=== PATIENT | male | born 1950 | race Caucasian/White ===

== ENCOUNTER 2020-08-16 19:39 | Emergency (ER) | payer MEDICARE, SELFPAY ==
[2020-08-16 19:40] VITALS: BP 150/108; PULSE 118; RESP 28; TEMP 36.9; O2SAT 95; BMI 30.8
--- NOTE | 2020-08-16 19:51 | CT_ITS ---
STUDY: CT BRAIN WITHOUT CONTRAST REASON FOR EXAM: Male, 70 years old. Fall trauma RADIATION DOSAGE (If Supplied By Facility): CTDIvol = ( 44.99 ) mGy, DLP = ( 880.47 ) mGycm TECHNIQUE: Transaxial CT imaging of the brain was performed without administration of intravenous contrast material. Individualized dose optimization techniques were used for this CT. COMPARISON: No relevant priors. FINDINGS: There is chronic ischemic change in the right frontal deep white matter. There is no acute intracranial hemorrhage, extra parenchymal fluid collections, hydrocephalus or herniation. The skull is intact. There is possible nasal fracture with nasal deformity. This is age indeterminate. CT/Brain/Head without Contrast IMPRESSION: 1. No acute intracranial injury. 2. Nasal deformity, unknown age, evaluate for possibility of acute fracture. Electronically Signed: Guadalupe Aviles, at 20:19 EDT Tel , Service support ,
--- NOTE | 2020-08-16 19:51 | EKG12_ITS ---
Test Reason : DYSRYHMIA Blood Pressure : / mmHG Vent. Rate : 107 BPM Atrial Rate : 107 BPM P-R Int : 144 ms QRS Dur : 104 ms QT Int : 382 ms P-R-T Axes : 054 -49 021 degrees QTc Int : 509 ms Sinus tachycardia with Premature atrial complexes Left anterior fascicular block Cannot rule out Inferior infarct (masked by fascicular block?) , age undetermined Abnormal ECG Confirmed by AMISHA QUINTANA, HANK ([id number]), editor managing newspaper SUNSHINE LEAHY ([id number]) on 08/18/2020 10:30:00 AM Referred By: FREEDOM Confirmed By:HANK LION MD
--- NOTE | 2020-08-16 19:52 | ED.VIS.GEN ---
History of Present Illness Chief Complaint: General Illness Informant: Patient, Significant Other, Career Manager Narrative: Presents by EMS. He has had multiple falls over the past few weeks, yesterday he fell hurt the right side of his ribs as well as his right elbow, he has been laying on the floor since yesterday. He has been unable to get up. He has no head injury, denies confusion denies neck pain. He has a tremor and he has been more weak recently and now is starting to shuffle his feet when he walks. Past Medical History - Allergies and Home Meds Allergies/Adverse Reactions: Allergies No Known Allergies Allergy (Verified 08/16/20 19:40) Primary Care Physician: Ashwin Hatfield MD [Primary Care Provider] - Past Medical History: - - Hypertension, hypercholesterolemia, diabetes, tremor Smoking Status: Never smoker Review of Systems ROS: - Hypertension, hypercholesterolemia, diabetes, tremor. General: Reports: - - Generalized weakness. Denies: Fever Eyes: Denies: Visual changes - bilaterally ENT: Denies: Sore throat Cardiovascular: Reports: Chest pain, - - Chest wall pain. Denies: Palpitations Respiratory: Denies: Dyspnea Gastrointestinal: Denies: Abdominal pain, Nausea, Vomiting Genitourinary: Denies: Dysuria Musculoskeletal: Reports: Extremity Pain Skin: Denies: Rash Neurological: Denies: Headache Endocrine: Denies: Polyuria Hematologic: Denies: Easy bruising Allergy: Denies: Swelling of the tongue Physical Exam Vital Signs/Narrative: Vital Signs Temp Pulse Resp BP Pulse Ox 08/16/20 19:40 98.5 F 118 H 28 H 150/108 H 95 General: - - Patient appears relatively comfortable in bed, he is smiling, he is tachycardic Head: Normocephalic Eyes: Perrl, EOMI ENT: Dry mucous membranes, - - No airway compromise. No facial injury Cardiovascular: Regular rhythm, Tachycardia Respiratory: No distress, CTA bilaterally, - - Right-sided lower rib tenderness Abdomen: Soft, Nontender, Nondistended Back: Nontender, Normal Inspection Extremities: - - There is a contusion over the right elbow with some tenderness. No obvious deformity Skin: Normal color Neurological: Normal Strength, Normal Sensation Diagnostic/Tx/Re-eval - Rhythm Strip Rhythm Strip: Sinus Rhythm Rate: 107 Ectopy: None - EKG Initial EKG Interpretation: - - Tachycardia with a rate of 107. Left anterior fascicular block. Nonspecific ST changes throughout. Normal SD interval. QTc interval is slightly prolonged at 509. Interpreted by emergency doctor - Medical Decision Making Patient is found to have 3 rib fractures he continues to be tachycardic. He is more comfortable as far as pain is concerned. Because of the 3 rib fractures and high morbidity associated with this and per recommendations of trauma surgeons I will transfer to a trauma center. - Critical Care Time Critical care time (excluding procedures): 30-74 minutes - Patient is tachypneic and tachycardic he has multiple rib fractures. Time was spent at the bedside consulting with family the patient, I took time to transfer the patient as well as talk to consultants. ED Disposition - Plan for ED Patient: Disposition: Acute Care Hospital - Other Diagnosis: Ribs, multiple fractures Referrals: Ashwin Hatfield MD [Primary Care Provider] -
[2020-08-16 20:02] LABS: Absolute Lymphocyte Count 0.68 X10^3/uL (0.83-4.51); Absolute Neutrophil Count 13.8 X10^3/uL (2.0-7.7); Basophil# 0.01 X10^3/uL; Basophil% 0.1 % (0-1); Eosinophil# 0.03 X10^3/uL; Eosinophils% 0.2 % (0-5); Hematocrit 37.9 % (40-54); Hemoglobin 11.9 g/dL (13.0-16.5); Lymphocyte # 0.68 X10^3/ul (4.0); Lymphocyte % 4.3 % (19-41); Mean Corp Hgb Conc 31.4 g/dL (32-36); Mean Corpuscular Hgb 28.3 pg (27.0-32.0); Mean Corpuscular Volume 90.2 fL (80-94); Mean Platelet Vol. 10.9 fl (6.2-12.0); Monocyte# 1.27 X10^3/uL; NRBC Flagged by Analyzer 0 % (0-5); Neutrophil # 13.81 X10^3/uL (2.7-7.7); Neutrophil % 86.9 % (47-70); Platelet Count 348 K/mm3 (150-450); RBC Distribution Width CV 13.3 % (11.6-14.6); RBC Distribution Width SD 43.4 fl (35.1-43.9); White Blood Count 15.9 K/mm3 (4.4-11.0)
--- NOTE | 2020-08-16 20:10 | RAD_ITS ---
STUDY: X-RAY - UNILATERAL RIBS ( RIGHT ) WITH CHEST REASON FOR EXAM: Male, 70 years old. patient had a fall, right rib pain TECHNIQUE - RIBS: 4 view(s) of the ribs. TECHNIQUE - CHEST: COMPARISON: None. FINDINGS - RIBS: There is a minimally displaced fourth right rib fracture laterally. There is a probably minimally displaced fractures of the seventh and eighth ribs anterolaterally. FINDINGS - CHEST: There is no pneumothorax. The lungs are clear and expanded. There is no demonstrated pleural abnormality. Normal size heart. Normal mediastinum and keith. Normal visualized pulmonary arteries. Normal visualized aortic arch and descending thoracic aorta. Normal visualized thoracic spine. Normal visualized ribs, clavicles, and shoulders. There is no demonstrated abnormality of the visualized soft tissue structures of the upper abdomen. There is cholecystectomy. RAD/Ribs Uni Min 3V w/PA Chest IMPRESSION: 1. No pneumothorax. 2. Right rib fractures. 3. Normal lungs. Electronically Signed: Guadalupe Aviles, at 20:30 EDT Tel , Service support ,
[2020-08-16 20:24] LABS: ALB/GLOB Ratio 0.9 RATIO (0.9-2.4); AST(SGOT) 21 U/L (15-37); Alanine Aminotransfer ALT/SGPT 23 U/L (16-61); Albumin, Serum 3.6 g/dL (3.2-5.0); Alkaline Phosphatase 76 U/L (45-117); Anion Gap 10 (5-15); BUN 10 mg/dL (7-18); BUN/Creat Ratio 9.5 RATIO (10-20); Calcium,Total 8.7 mg/dL (8.5-10.1); Chloride 98 mmol/L (98-107); Creatinine, Serum 1.05 mg/dL (0.70-1.30); EST Glomerular Filtration Rate 74 mL/min (>60); Est Glom Filt Rate - Afr Amer 90 mL/min (>60); Estimated Creatinine Clearance 62.08 ml/min; Globulin 4.2 g/dL (2.2-4.2); Glucose 293 mg/dL (74-106); Potassium 3.7 mmol/L (3.5-5.1); Protein, Total 7.8 g/dL (6.4-8.2); Sodium Level 135 mmol/L (136-145)
[2020-08-16 20:25] VITALS: BP 165/106; PULSE 108; RESP 16; O2SAT 96
[2020-08-16 20:27] LABS: CPK Total, Creatine Kinase 339 U/L (39-308)
[2020-08-16 20:49] LABS: BNP,B-Type NATRIURETIC PEPTIDE 28.8 pg/mL (0-100)
[2020-08-16 20:54] LABS: Squamous Epithelial Cells - UA 0 SEEN /hpf (0-5)
[2020-08-16 20:57] LABS: Color, Urine Yellow (Yellow); Glucose, Dipstick 1000 mg/dl (Normal); Leukocyte Esterase-Dipstick 25 /ul (Negative); Nitrite-Dipstick Negative (Negative); Occult Blood-Urine 50 /ul (Negative); Protein-Dipstick 100 mg/dl (Negative); Specific Gravity, Urine 1.025 (1.002-1.030); Urine Clarity Clear (Clear); Urine Urobilinogen 1 mg/dl (Normal)
[2020-08-16 21:00] VITALS: BP 169/88; PULSE 105; RESP 19; O2SAT 95
--- NOTE | 2020-08-16 21:00 | RAD_ITS ---
STUDY: X-RAY - RIGHT ELBOW REASON FOR EXAM: Male, 70 years old fall pain trauma, elbow pain after falling TECHNIQUE: 3 view(s) of the elbow. COMPARISON: None. FINDINGS: The bones of the elbow are intact and located. Mineralization is normal. Soft tissues are intact. There is no joint effusion. RAD/Elbow min 3 Views IMPRESSION: Normal x-ray examination of the elbow. Electronically Signed: Guadalupe Aviles, at 21:18 EDT Tel , Service support ,
[2020-08-16 21:02] LABS: Urine Bilirubin Dipstick 1 mg/dL (Negative)
[2020-08-16 21:05] LABS: Ketone-Dipstick 150 mg/dl (Negative)
[2020-08-16] MEDS: Ondansetron 4 MG/2 ML Vial IV (21:17)
[2020-08-16] MEDS: Morphine 2 MG/ML Syringe IV (21:18)
[2020-08-16 21:25] LABS: Bacteria 1+ /hpf (None Seen); Red Blood Cells-Urine 0-5 SEEN /hpf (0-5); White Blood Cells 0-5 SEEN /hpf (0-5)
[2020-08-16 21:26] LABS: Mucous, Urine 3+ /hpf (<or=2+)
[2020-08-16 21:43] VITALS: BP 169/88; PULSE 103; RESP 20; TEMP 36.9; O2SAT 95
--- NOTE | 2020-08-16 22:17 | ED.RN ---
PT REPORTS HE NEEDS HIS HS MEDS: CLARIFIED WITH DR LOJA AND OBTAINED VERBAL PERMISSION FOR PT TO RCVE HIS HS MEDS. PT RCVD METFORMIN 1000 MG, SIMVASTATIN 40 MG, PRIMIDONE 50 MG AND BABY ASA. EDELMIRA IV INFILTRATED, MODERATE EDEMA NOTED. DR LOJA AWARE AND EXAMINED SITE. NEW IV STARTED IN R HAND
== END 2020-08-16 22:20 | disposition short-term general hospital (02) ==
PROVIDERS: Emergency Provider Emergency Medicine; PCP Family Medicine
DX: S22.41XA Multiple fractures of ribs, right side, initial encounter for closed fracture (principal); S50.01XA Contusion of right elbow, initial encounter; W19.XXXA Unspecified fall, initial encounter; Y93.9 Activity, unspecified; Y92.9 Unspecified place or not applicable; Y99.9 Unspecified external cause status; R29.6 Repeated falls; R06.82 Tachypnea, not elsewhere classified; R00.0 Tachycardia, unspecified; E11.9 Type 2 diabetes mellitus without complications; I10 Essential (primary) hypertension; E78.00 Pure hypercholesterolemia, unspecified; Z79.82 Long term (current) use of aspirin; Z79.84 Long term (current) use of oral hypoglycemic drugs; Z79.899 Other long term (current) drug therapy
CPT/HCPCS: 70450; 71101; 73080; 80053; 81001; 82550; 83880; 84484; 85025; 93005; 96361; 96374; 96375; 99285; J7040; A4216; J2405

== ENCOUNTER → 2021-10-08 06:13 | Outpatient (CLI) | payer MEDICARE, SELFPAY ==
--- NOTE | 2021-10-08 06:44 | MRI_ITS ---
EXAM: MR HEAD WITHOUT AND WITH INTRAVENOUS CONTRAST CLINICAL INDICATION: L OPTIC LESION, H/O PROSTATE CA TECHNIQUE: Multiplanar and multisequence MR images of the brain were obtained without and with intravenous contrast. This report was created using [employer] technology. CONTRAST: IV 15cc Dotarem COMPARISON: None. FINDINGS: BRAIN AND EXTRA-AXIAL SPACES: Subcortical white matter T2 FLAIR hyperintensity focus in the right frontal operculum is chronic white matter ischemic change. No intra- or extra-axial hemorrhage. No intracranial mass or mass effect. Posterior fossa structures are unremarkable. Ventricles are appropriate for age. No hydrocephalus. Basal cisterns are patent. ORBITS: Normal orbital globes. Normal lacrimal glands. Normal intraconal fat. Normal optic nerve sheath complex. Normal extraconal muscles. No abnormal contrast enhancing lesions. SELLA: Unremarkable. Normal sella turcica, pituitary gland, infundibular stalk, optic chiasm and hypothalamus. AUDITORY SYSTEM: Unremarkable. The internal auditory canals are patent. BONES/JOINTS: Unremarkable. No discrete lytic or blastic abnormalities. SINUSES: Unremarkable as visualized. Clear. MASTOID AIR CELLS: Unremarkable as visualized. Clear. ORBITS: Unremarkable as visualized. Both globes, extraocular muscles, optic nerves and retrobulbar fat appear unremarkable. VASCULATURE: Unremarkable as visualized. Normal flow voids in the major intracranial circulation. MRI/Brain W/WO Contrast IMPRESSION: 1. Normal MRI of the orbits with and without contrast. 2. Chronic white matter ischemic change in the right frontal operculum otherwise negative MRI of the brain with and without contrast. Electronically Signed: Rene Winchester MD at 12:42 EST , Service support ,
[2021-10-08 06:46] LABS: Absolute Lymphocyte Count 1.55 X10^3/uL (0.83-4.51); Absolute Neutrophil Count 5.9 X10^3/uL (2.0-7.7); Basophil# 0.02 X10^3/uL; Basophil% 0.2 % (0-1); Eosinophil# 0.38 X10^3/uL; Eosinophils% 4.3 % (0-5); Hematocrit 40.6 % (40-54); Lymphocyte # 1.55 X10^3/ul (0.83-4.51); Lymphocyte % 17.7 % (19-41); Mean Corpuscular Volume 87.5 fL (80-94); Mean Platelet Vol. 9.9 fl (6.2-12.0); Monocyte# 0.88 X10^3/uL; Monocyte% 10.1 % (0-10); NRBC Flagged by Analyzer 0 % (0-5); Neutrophil # 5.88 X10^3/uL (2.7-7.7); Neutrophil % 67.4 % (47-70); Platelet Count 382 K/mm3 (150-450); RBC Distribution Width CV 13.7 % (11.6-14.6); RBC Distribution Width SD 43.9 fl (35.1-43.9); Red Blood Count 4.64 M/mm3 (4.6-6.2); White Blood Count 8.7 K/mm3 (4.4-11.0)
[2021-10-08 07:01] LABS: CREATININE FINGERSTICK 0.8 mg/dL (0.70-1.30); EGFR FINGERSTICK > 60.0000 mL/min (>60)
[2021-10-08 07:17] LABS: CRP 3.77 mg/L (0.0-3.0); Erythrocyte Sedimentation Rate 21 mm/hr (0-20)
== END ==
PROVIDERS: PCP Family Medicine; Referring Provider Ophthalmology; Visit Provider Ophthalmology
DX: H47.332 Pseudopapilledema of optic disc, left eye (principal); Z85.46 Personal history of malignant neoplasm of prostate
CPT/HCPCS: 36415; 70553; 85025; 85652; 86140; A9575

== ENCOUNTER 2021-11-02 09:36 | Outpatient (CLI) | payer MEDICARE, SELFPAY ==
--- NOTE | 2021-11-02 11:05 | CDU_ITS ---
Reason For Study: vision loss Rt. Velocities/BP Lt. Velocities/BP Prox CCA 70.8/6.9 cm/sec. Prox CCA 94.8/11.3 cm/sec. Mid CCA 72.1/8.2 cm/sec. Mid CCA 60.8/10.2 cm/sec. Dist CCA 53.9/5.6 cm/sec. Dist CCA 64.0/10.2 cm/sec. Prox ICA 46.5/11.3 cm/sec. Prox ICA 85.1/15.1 cm/sec. Mid ICA 67.4/19.0 cm/sec. Mid ICA 77.1/17.6 cm/sec. Dist ICA 96.0/21.2 cm/sec. Dist ICA 80.5/19.1 cm/sec. Rt. ICA/CCA = 1.3. Lt. ICA/CCA = 1.4. Prox ECA 112.5 cm/sec. Prox ECA 108.4 cm/sec. Rt. Vert. 50.9/16.8 cm/sec. Right Extracranial There is intimal thickening but no significant atherosclerotic plaque noted in the right common carotid artery. There is heterogeneous, irregular atherosclerotic plaque noted in the right internal carotid artery. There is heterogeneous, irregular atherosclerotic plaque noted in the right external carotid artery. Antegrade flow is noted in the right vertebral artery. Left Extracranial There is intimal thickening but no significant atherosclerotic plaque noted in the left common carotid artery. There is heterogeneous, irregular atherosclerotic plaque noted in the left internal carotid artery. The left internal carotid artery is very tortuous. There is intimal thickening but no significant atherosclerotic plaque noted in the left external carotid artery. Flow could not be demonstrated in the left vertebral artery. Procedure Carotid Duplex [id number]. This is a Carotid Duplex examination using B-mode, color flow and specral Doppler. The exam was diagnostic. Exam performed in department. VL/Carotid Duplex Ultrasound Interpretation Summary Flow could not be demonstrated in the left vertebral artery. Irregular plaque at the proximal right internal carotid artery with less than 5 0% stenosis Less than 50% stenosis right external carotid artery Patent and antegrade right vertebral artery Irregular plaque at the proximal left internal carotid artery with a very tortu ous left internal carotid artery. Less than 50% stenosis of the left internal carotid artery Less than 50% stenosis left external carotid artery Ordering Physician: Jose Rousseau Performed By: Wenceslao Zafar RVT
== END 2021-11-02 23:59 | disposition short-term general hospital (02) ==
LOC: CVS 09:38
PROVIDERS: PCP Family Medicine; Referring Provider Ophthalmology; Visit Provider Ophthalmology
DX: H53.132 Sudden visual loss, left eye (principal)
CPT/HCPCS: 93880

== ENCOUNTER 2022-10-20 15:06 | Inpatient (IN) | payer MEDICARE, SELFPAY ==
[2022-10-20 15:06] VITALS: BP 149/103; PULSE 113; RESP 19; TEMP 36.3; O2SAT 97; BMI 25.5
[2022-10-20 15:09] VITALS: BP 149/103; PULSE 111; RESP 20; TEMP 36.3; O2SAT 96
--- NOTE | 2022-10-20 15:30 | RAD_ITS ---
INDICATION: COUGH EXAMINATION/TECHNIQUE: X-RAY - portable upright AP chest x-ray COMPARISON: 08/16/2020 FINDINGS: LINES/DEVICES: None. LUNGS: Patchy airspace opacity left mid and lower lung field. No consolidation or pleural effusion. MEDIASTINUM AND CARDIOVASCULAR STRUCTURES: Cardiac silhouette stable within normal limits. BONES AND SOFT TISSUES: No acute changes. RAD/Chest 1 View (Portable) IMPRESSION: Patchy infiltrate left lower lung field suspicious for pneumonia. Recommend short-term follow-up for resolution. Electronically Signed: Alexis Krishna MD at 16:00 EST ,
[2022-10-20 15:37] LABS: Absolute Lymphocyte Count 0.29 X10^3/uL (0.83-4.51); Basophil# 0.01 X10^3/uL; Basophil% 0.1 % (0-1); Eosinophil# 0.04 X10^3/uL; Eosinophils% 0.5 % (0-5); Hematocrit 39.3 % (40-54); Hemoglobin 12.9 g/dL (13.0-16.5); Lymphocyte # 0.29 X10^3/ul (0.83-4.51); Lymphocyte % 3.4 % (19-41); Mean Corp Hgb Conc 32.8 g/dL (32-36); Mean Corpuscular Hgb 28.9 pg (27.0-32.0); Mean Corpuscular Volume 88.1 fL (80-94); Mean Platelet Vol. 10.4 fl (6.2-12.0); Monocyte# 1.05 X10^3/uL; Monocyte% 12.4 % (0-10); NRBC Flagged by Analyzer 0 % (0-5); Neutrophil # 7.04 X10^3/uL (2.7-7.7); Neutrophil % 83.2 % (47-70); POSITIVE DIFFERENTIAL YES; Platelet Count 257 K/mm3 (150-450); RBC Distribution Width CV 13.8 % (11.6-14.6); RBC Distribution Width SD 44.6 fl (35.1-43.9); Red Blood Count 4.46 M/mm3 (4.6-6.2); White Blood Count 8.5 K/mm3 (4.4-11.0)
--- NOTE | 2022-10-20 15:43 | CT_ITS ---
INDICATION: confusion EXAMINATION: CT BRAIN - CT Head or Brain W/O Contrast Injection TECHNIQUE: Multiple axial images were obtained of the head without intravenous contrast. A radiation dose optimization technique was used for this scan. IV Contrast dosage and agent: None. COMPARISON: 08/16/2020 FINDINGS: BRAIN PARENCHYMA: No intra- or extra-axial hemorrhage. No evidence of acute infarct. No intracranial mass or mass effect. There is preservation of the ansari/white matter interface. Posterior fossa structures are unremarkable. Volume loss with low attenuation of the periventricular white matter typical of chronic small vessel disease. CSF SPACES: Appropriate for age. No hydrocephalus. Basal cisterns are patent. CALVARIUM, SKULL BASE, PARANASAL SINUSES AND MASTOID AIR CELLS: Clear. No discrete lytic or blastic abnormalities. CT/Brain/Head without Contrast IMPRESSION: Volume loss with chronic white matter changes. No acute intracranial findings. Electronically Signed: Alexis Krishna MD at 17:18 EST ,
--- NOTE | 2022-10-20 15:50 | EX.ED.DYSGE1 ---
HPI History of Present Illness Chief Complaint: Weakness Informant: patient and family Narrative Narrative: Some history is from patient but is quite minimal as he is confused. Most of the history is through his son. Patient's brought in because he was confused today and was minimally responsive when his son went over to pick him up for lunch. The son last saw him 2 mornings ago for breakfast and he seemed totally normal. The patient had actually driven out to meet his son. When the son showed up today he was still wearing the same close. He seemed to have a fever. He has had a slight cough for a day or 2 but denies being short of breath. Patient actually denies all symptoms but he is confused. Son states he acted like this once about a year or so ago when he had COVID. But he returned to baseline and is normally very functional and lives alone. Son knows that he has high blood pressure and diabetes. No other history is known. They deny any known history of cardiac disease. They do not recognize any irregular heart rate or atrial fibrillation history. PFSH PFS Home Medications aspirin 81 mg chewable tablet 81 mg PO DAILY 08/16/20 [History Last Taken Unknown] glimepiride 4 mg tablet 4 mg PO DAILY 08/16/20 [History Last Taken Unknown] lisinopril 40 mg tablet 40 mg PO DAILY 08/16/20 [History Last Taken Unknown] metformin 1,000 mg tablet 1,000 mg PO BID 08/16/20 [History Last Taken Unknown] primidone 50 mg tablet 50 mg PO BID 08/16/20 [History Last Taken Unknown] simvastatin 40 mg tablet 40 mg PO QHS 08/16/20 [History Last Taken Unknown] sitagliptin phosphate 100 mg tablet 100 mg PO DAILY 08/16/20 [History Last Taken Unknown] Allergy/AdvReac Type Severity Reaction Status Date / Time No Known Allergies Allergy Verified 08/16/20 19:40 Social History Smoking Status: Never smoker ROS ROS ED ROS Narrative Patient is confused. He denies all review of systems but I really cannot get a good reliable review of systems other than the known positives as below. This is due to his confusion. Constitutional Constitutional ED: Reports fever(s) Respiratory/Chest Respiratory/Chest: Reports cough EXAM Physical Exam Const Vital Signs: 10/20/22 15:06 10/20/22 15:09 10/20/22 15:12 Temperature 97.3 F L 97.3 F L Temperature Source Temporal Temporal Pulse Rate 113 H 111 H Respiratory Rate 19 H 20 H Respiratory Effort Short of Breath Respiratory Pattern Tachypnea Blood Pressure 149/103 H 149/103 H Blood Pressure Mean 118 118 Pulse Ox 97 96 Oxygen Delivery Method Room Air Room Air Positive well nourished and well developed Constitutional Narrative: Patient is sitting quietly in bed. He is pleasant but confused. His skin does feel warmer than then temperature that was recorded here. This will be repeated. General Appearance ED: well developed and NAD HEENT Reports dry mucous membranes Mouth ED: Yes dry mucous membranes Mouth: dry mucous membranes Eyes Eyes Narrative: No photophobia General Eye ED: Negative for pale conjunctiva or scleral icterus Neck no JVD Chest Wall inspection of chest normal Resp normal respiratory effort Resp Narrative: Respiratory effort seems normal. Saturations are normal. But the patient does have occasional dry cough in the room. He does not take real deep breaths for me. He does have a few coarse breath sounds at the left base but not markedly abnormal. I hear no wheezes or rales. Cardio Rate: tachycardic and other Other Details: Heart rate is tachycardic. At times it looks to be sinus rhythm with tach but then it gets a little bit irregular and could be atrial fibrillation or intermittent atrial fibrillation. GI normal to inspection, nondistended, normoactive bowel sounds and non-tender GI Narrative: Benign abdomen. No tenderness at all even with rather firm palpation. Narrative: No CVA or suprapubic tenderness Back/Spine no CVA tenderness Extremity normal to inspection Extremity Narrative: No peripheral edema. No tenderness. Neuro Neuro Narrative: Patient is alert to person and place. He knows he is in [facility]. He told me the year was 2017. His son stated he did give the correct year just a few minutes prior. He cannot tell me who the president is. The son states normally he would know the president and would have a very strong opinion about him. This is a big change from his baseline. Psych Attitude: No agitated Skin no rashes or lesions noted Skin Narrative: Skin is a bit warm to palpation but no erythema. MDM MDM MDM Narrative Medical decision making narrative: Blood work showed no elevation white count. Hemoglobin has a nonspecific minimal lowering at 12.9. Platelets normal. Electrolytes show minimal decreased potassium at 3.3. Lactic acid is mildly elevated 2.4. This could be due to his infection, pulm hypoxia, but he is also on metformin that can do this. LFT show no acute process urine is not showing any significant signs of infection. There were positive nitrates but it was clear and only 0-5 white cells. Influenza was positive. With his fever confusion and infiltrate he was treated initially with antibiotics and IV fluids. Heart rate has come down. Patient will be admitted. I discussed case with hospitalist. Lab Data Attestation: I reviewed the patient's lab results. Labs: Laboratory Results - last 24 hr 10/20/22 10/20/22 10/20/22 15:19 15:19 15:58 WBC 8.5 RBC 4.46 L Hgb 12.9 L Hct 39.3 L MCV 88.1 MCH 28.9 MCHC 32.8 RDW Std Deviation 44.6 H RDW Coeff of Gabriel 13.8 Plt Count 257 MPV 10.4 Immature Gran % (Auto) 0.400 Neut % (Auto) 83.2 H Lymph % (Auto) 3.4 L [place] % (Auto) 12.4 H Eos % (Auto) 0.5 Baso % (Auto) 0.1 Absolute Neuts (auto) 7.0 Absolute Lymphs (auto) 0.29 L Nucleated RBC % 0 Differential Comment SEE COMMENT Platelet Estimate ADEQUATE RBC Morphology N CHROM Anisocytosis RARE Sodium 139 Potassium 3.3 L Chloride 107 Carbon Dioxide 25.0 Anion Gap 7 BUN 7 Creatinine 0.91 Estim Creat Clear Calc 79.30 Est GFR (MDRD) Af Amer 105 Est GFR (MDRD) Non-Af 87 BUN/Creatinine Ratio 7.7 L Glucose 186 H Lactic Acid 2.4 H* Calcium 8.5 Total Bilirubin 0.40 AST 7 L ALT 13 L Alkaline Phosphatase 79 Total Protein 7.7 Albumin 3.8 Globulin 3.9 Albumin/Globulin Ratio 1.0 Urine Color Urine Clarity Urine pH Ur Specific Remington Urine Protein Urine Glucose (UA) Urine Ketones Urine Occult Blood Urine Nitrite Urine Bilirubin Urine Urobilinogen Ur Leukocyte Esterase Urine RBC Urine WBC Ur Squamous Epith Cells Urine Bacteria Urine Mucus 10/20/22 17:10 WBC RBC Hgb Hct MCV MCH MCHC RDW Std Deviation RDW Coeff of Gabriel Plt Count MPV Immature Gran % (Auto) Neut % (Auto) Lymph % (Auto) [place] % (Auto) Eos % (Auto) Baso % (Auto) Absolute Neuts (auto) Absolute Lymphs (auto) Nucleated RBC % Differential Comment Platelet Estimate RBC Morphology Anisocytosis Sodium Potassium Chloride Carbon Dioxide Anion Gap BUN Creatinine Estim Creat Clear Calc Est GFR (MDRD) Af Amer Est GFR (MDRD) Non-Af BUN/Creatinine Ratio Glucose Lactic Acid Calcium Total Bilirubin AST ALT Alkaline Phosphatase Total Protein Albumin Globulin Albumin/Globulin Ratio Urine Color Yellow Urine Clarity Clear Urine pH 8.0 Ur Specific Remington 1.010 Urine Protein 30 H Urine Glucose (UA) Normal Urine Ketones Negative Urine Occult Blood 10 H Urine Nitrite Positive H Urine Bilirubin Negative Urine Urobilinogen Normal Ur Leukocyte Esterase 100 H Urine RBC 0-5 SEEN Urine WBC 0-5 SEEN Ur Squamous Epith Cells 0-5 SEEN Urine Bacteria 0 SEEN Urine Mucus 0 SEEN Radiography Diagnostic Testing: Clinical Impression(s) from Imaging Studies Chest X-Ray 10/20/22 15:30 IMPRESSION: Patchy infiltrate left lower lung field suspicious for pneumonia. Recommend short-term follow-up for resolution. Electronically Signed: Alexis Krishna MD at 16:00 EST , Brain CT 10/20/22 15:43 IMPRESSION: Volume loss with chronic white matter changes. No acute intracranial findings. Electronically Signed: Alexis Krishna MD at 17:18 EST , CT of his head is showing no acute process. Chest x-ray does hint of a early left lower lobe infiltrate. This was looked at by me and read by radiology. EKG Initial EKG: Comments: EKG done for tachycardia read by me shows sinus rhythm with tachycardic rate at 101. There are occasional PACs. No ventricular ectopy. No acute ST elevation or depression. There is mild nonspecific changes. KS interval, QRS duration are normal. QTc is a bit long at 495 ms. Discharge Plan Triage Chief Complaint: Weakness ED Provider: Awais Nava Dx/Rx/DC Orders Clinical Impression: Influenza A, Community acquired pneumonia, Delirium, Acidosis, lactic Prescriptions: No Action aspirin 81 MG tablet,chewable 81 mg PO DAILY metformin 1,000 MG tablet 1,000 mg PO BID glimepiride 4 MG tablet 4 mg PO DAILY simvastatin 40 MG tablet 40 mg PO QHS lisinopril 40 MG tablet 40 mg PO DAILY primidone 50 MG tablet 50 mg PO BID sitagliptin phosphate 100 MG tablet 100 mg PO DAILY Primary Care Provider: Ashwin Hatfield Referrals: Ashwin Hatfield MD [Primary Care Provider] - Disposition Disposition: Acute Care Hospital [facility]
[2022-10-20 15:53] LABS: AST(SGOT) 7 U/L (15-37); Alanine Aminotransfer ALT/SGPT 13 U/L (16-61); Albumin, Serum 3.8 g/dL (3.2-5.0); Alkaline Phosphatase 79 U/L (45-117); Anion Gap 7 (5-15); BUN 7 mg/dL (7-18); BUN/Creat Ratio 7.7 RATIO (10-20); Calcium,Total 8.5 mg/dL (8.5-10.1); Chloride 107 mmol/L (98-107); Creatinine, Serum 0.91 mg/dL (0.70-1.30); EST Glomerular Filtration Rate 87 mL/min (>60); Est Glom Filt Rate - Afr Amer 105 mL/min (>60); Globulin 3.9 g/dL (2.2-4.2); Glucose 186 mg/dL (74-106); Potassium 3.3 mmol/L (3.5-5.1); Protein, Total 7.7 g/dL (6.4-8.2); Sodium Level 139 mmol/L (136-145)
[2022-10-20] MEDS: 0.9% Normal Saline 1,000 ML 1000 ML IV (15:57)
[2022-10-20] MEDS: Acetaminophen 500 MG Tablet 1000 MG PO (15:57)
--- NOTE | 2022-10-20 16:03 | ED.RN ---
THIS RN IN TO MEDICATE PT WITH TYLENOL. PT ACTED APPROPRIATELY UNTIL TYLENOL WAS IN MOUTH. PT BEGAN CHEWING MEDICATION. MULTIPLE ATTEMPTS TO REMOVE MEDICATION FUTILE. ENCOURAGED PT TO DRINK WATER.
[2022-10-20 16:21] LABS: Differential Indicated SCAN CRITERIA MET
[2022-10-20 16:37] LABS: Lactic Acid 2.4 mmol/L (0.4-1.9)
[2022-10-20 16:44] LABS: Anisocytosis RARE; Platelet Estimate ADEQUATE (ADEQ); Red Cell Morphology N CHROM NORMAL (NORM C&C)
[2022-10-20] MEDS: Ceftriaxone 1 GM/50 ML BAG IV (17:14)
[2022-10-20 17:33] LABS: Bacteria 0 SEEN /hpf (None Seen); Mucous, Urine 0 SEEN /hpf (<or=2+)
--- NOTE | 2022-10-20 17:36 | EKG12_ITS ---
Test Reason : weakness Blood Pressure : / mmHG Vent. Rate : 101 BPM Atrial Rate : 105 BPM P-R Int : 184 ms QRS Dur : 104 ms QT Int : 382 ms P-R-T Axes : 000 -70 018 degrees QTc Int : 495 ms Sinus tachycardia with Premature atrial complexes Left axis deviation Inferior infarct , age undetermined, cannot be excluded Poor R wave progression Abnormal ECG Confirmed by SOILA QUINTANA, WAYNE ([id number]), offline editor SUNSHINE LEAHY ([id number]) on 10/25/2022 12:36:21 PM Referred By: Brandy Confirmed By:WAYNE CM MD
[2022-10-20 18:08] LABS: Color, Urine Yellow (Yellow); Glucose, Dipstick Normal (Normal); Ketone-Dipstick Negative (Negative); Leukocyte Esterase-Dipstick 100 /ul (Negative); Nitrite-Dipstick Positive (Negative); Occult Blood-Urine 10 /ul (Negative); Protein-Dipstick 30 mg/dl (Negative); Urine Bilirubin Dipstick Negative (Negative); Urine Clarity Clear (Clear); Urine Urobilinogen Normal (Normal)
[2022-10-20 18:23] LABS: Red Blood Cells-Urine 0-5 SEEN /hpf (0-5); Squamous Epithelial Cells - UA 0-5 SEEN /hpf (0-5); White Blood Cells 0-5 SEEN /hpf (0-5)
--- NOTE | 2022-10-20 18:26 | NURSING ---
MED SURG ISABELA INFLUENZA, DELIRIUM, FEVER
--- NOTE | 2022-10-20 18:55 | PCM.HP.STD ---
HPI - General General Date of Admission: 10/20/22 HPI Narrative RUIZ LE, is a 72 M who presents to the hospital with altered mental status according to the son. On my evaluation he knows who he is, where he is, and what year it is however per report, since the son is not at bedside anymore, he was supposed to have lunch with his dad today however when he arrived at the house it was locked and when he found his dad he was wearing the same clothes he been wearing on Monday when he had breakfast. At that time he did not know where he was or what year it was. During my evaluation he perseverates on his cough and being hungry, and did not know why he was here in the hospital. He did test positive for flu a and according to the son when he had had COVID a year ago he had a similar type of altered mental status.'s x-ray was obtained which demonstrated a patchy infiltrate of the left lower lobe that is possible for pneumonia, he not have a leukocytosis but he was tachycardic. He is not hypoxic. [facility] Home Medications aspirin 81 mg chewable tablet 81 mg PO DAILY 08/16/20 [History Last Taken Unknown] glimepiride 4 mg tablet 4 mg PO DAILY 08/16/20 [History Last Taken Unknown] lisinopril 40 mg tablet 40 mg PO DAILY 08/16/20 [History Last Taken Unknown] metformin 1,000 mg tablet 1,000 mg PO BID 08/16/20 [History Last Taken Unknown] primidone 50 mg tablet 50 mg PO BID 08/16/20 [History Last Taken Unknown] simvastatin 40 mg tablet 40 mg PO QHS 08/16/20 [History Last Taken Unknown] sitagliptin phosphate 100 mg tablet 100 mg PO DAILY 08/16/20 [History Last Taken Unknown] Allergy/AdvReac Type Severity Reaction Status Date / Time No Known Allergies Allergy Verified 08/16/20 19:40 Family History unable to obtain unable to obtain Surgical History unable to obtain unable to obtain Social History Smoking Status: Never smoker ROS Constitutional Constitutional: Denies chills, fatigue, fever(s) or malaise Eyes Eyes: Denies blurry vision ENT HEENT: Denies headache(s) or nasal discharge Cardiovascular Cardiovascular: Denies chest pain, dyspnea on exertion or syncope Respiratory/Chest Respiratory/Chest: Reports cough; Denies shortness of breath at rest or shortness of breath with exertion Gastrointestinal Gastrointestinal: Denies constipation, diarrhea, nausea or vomiting Genitourinary Genitourinary: Denies dysuria Neurologic Neurologic: Reports confusion; Denies focal weakness, numbness or tremor(s) Psychiatric Psychiatric: Denies anxiety or depression Vital Signs Vital Signs Vital Signs: 10/20/22 15:06 10/20/22 15:09 10/20/22 15:12 Temperature 97.3 F L 97.3 F L Temperature Source Temporal Temporal Pulse Rate 113 H 111 H Respiratory Rate 19 H 20 H Respiratory Effort Short of Breath Respiratory Pattern Tachypnea Blood Pressure 149/103 H 149/103 H Blood Pressure Mean 118 118 Pulse Ox 97 96 Oxygen Delivery Method Room Air Room Air Weight Weight: 183 lb 6.793 oz Body Mass Index (BMI) 25.5 Physical Exam Narrative General: Alert, Oriented x3, Cooperative, No apparent distress HEENT: Atraumatic, PERRLA, EOMI, Normocephalic Oral: Moist Mucosa Neck: Supple, No JVD Lungs: Diminished, Normal air movement, No rhonchi, No wheeze, No rales, slight crackles in left base Cardiovascular: Regular rate, Regular Rhythm, Normal S1, Normal S2, No murmurs Abdomen: Soft, Non Tender, Non-Distended, No Hepato-splenomegaly Extremities: No edema, Capillary Refill Less than 3 Seconds Skin: No rashes, No breakdown Musculoskeletal: No Tenderness to Palpation of Joints or Extremities Neurological: Cranial nerves II-XII grossly intact, Motor Exam 5/5 strength throughout, Sensory exam intact to light touch and pain Psych/Mental Status: Normal Affect, Appropriate Results Lab / Micro Data Result Diagrams: 10/20/22 15:19 10/20/22 15:19 Labs: Laboratory Results - last 24 hr 10/20/22 15:19: WBC 8.5, RBC 4.46 L, Hgb 12.9 L, Hct 39.3 L, MCV 88.1, MCH 28.9, MCHC 32.8, RDW Std Deviation 44.6 H, RDW Coeff of Gabriel 13.8, Plt Count 257, MPV 10.4, Immature Gran % (Auto) 0.400, Neut % (Auto) 83.2 H, Lymph % (Auto) 3.4 L, [place] % (Auto) 12.4 H, Eos % (Auto) 0.5, Baso % (Auto) 0.1, Absolute Neuts (auto) 7.0, Absolute Lymphs (auto) 0.29 L, Nucleated RBC % 0, Differential Comment SEE COMMENT, Platelet Estimate ADEQUATE, RBC Morphology N CHROM, Anisocytosis RARE 10/20/22 15:19: Sodium 139, Potassium 3.3 L, Chloride 107, Carbon Dioxide 25.0, Anion Gap 7, BUN 7, Creatinine 0.91, Estim Creat Clear Calc 79.30, Est GFR (MDRD) Af Amer 105, Est GFR (MDRD) Non-Af 87, BUN/Creatinine Ratio 7.7 L, Glucose 186 H, Calcium 8.5, Total Bilirubin 0.40, AST 7 L, ALT 13 L, Alkaline Phosphatase 79, Total Protein 7.7, Albumin 3.8, Globulin 3.9, Albumin/Globulin Ratio 1.0 10/20/22 15:58: Lactic Acid 2.4 H* 10/20/22 17:10: Urine Color Yellow, Urine Clarity Clear, Urine pH 8.0, Ur Specific [place] 1.010, Urine Protein 30 H, Urine Glucose (UA) Normal, Urine Ketones Negative, Urine Occult Blood 10 H, Urine Nitrite Positive H, Urine Bilirubin Negative, Urine Urobilinogen Normal, Ur Leukocyte Esterase 100 H, Urine RBC 0-5 SEEN, Urine WBC 0-5 SEEN, Ur Squamous Epith Cells 0-5 SEEN, Urine Bacteria 0 SEEN, Urine Mucus 0 SEEN Micro: Microbiology 10/20/22 15:19 Nasal Secretion SARS-CoV-2 & FLU Antigen (Rapid) - Final Influenzae A Radiology Impression Chest X-Ray 10/20/22 15:30 IMPRESSION: Patchy infiltrate left lower lung field suspicious for pneumonia. Recommend short-term follow-up for resolution. Electronically Signed: Alexis Krishna MD at 16:00 EST , Brain CT 10/20/22 15:43 IMPRESSION: Volume loss with chronic white matter changes. No acute intracranial findings. Electronically Signed: Alexis Krishna MD at 17:18 EST , Assessment & Plan Assessment/Plan (1) Influenza A: (2) Community acquired pneumonia: (3) Delirium: (4) Acidosis, lactic: PLAN: Plan 1. Altered mental status secondary to influenza A and possible bacterial pneumonia on the left side ? Unsure as to the duration of symptoms however Tamiflu was not all that helpful so we will hold off as he is not hypoxic ? Continue with Rocephin and azithromycin for his possible left-sided infiltrate ? We will attempt to get a sputum culture 2. DM2 ? We will hold his home medications ? We will place him on sliding scale insulin ? Accu-Cheks AC at bedtime ? Will monitor and make adjustments as necessary 3. HTN/HLD ? Blood pressures are current, will verify his home blood pressure medications ? Once meds are verified can restart home blood pressure medications DVT: Lovenox Charges/Coding Visit Charges Inpatient E&M: 79163 Init Hosp L2
[2022-10-20 19:07] VITALS: BMI 35.7
[2022-10-20 19:22] VITALS: BP 121/66; PULSE 89; RESP 14; TEMP 36.6; O2SAT 97
[2022-10-20 20:00] VITALS: BP 134/78; PULSE 88; RESP 20; TEMP 37.6; O2SAT 96
[2022-10-20 20:02] LABS: Reflex Lactate? Y
[2022-10-20 20:38] VITALS: BP 134/78; PULSE 88; RESP 20; TEMP 37.6; O2SAT 96
[2022-10-20 21:00] VITALS: BP 134/78; PULSE 88; RESP 20; TEMP 37.6; O2SAT 96
[2022-10-20 21:21] LABS: Lactic Acid 1.4 mmol/L (0.4-1.9)
[2022-10-20 22:01] LABS: Bedside Glucose 143 mg/dL (74-106)
[2022-10-20] MEDS: Atorvastatin Calcium 20 MG Tablet PO (23:16)
[2022-10-20] MEDS: 0.9% Normal Saline 1,000 ML 100 ML IV (23:16)
[2022-10-20] MEDS: guaiFENesin 600 MG Tablet PO (23:16)
[2022-10-20] MEDS: 0.9% Saline Lock 10 ML Syringe IV (23:25)
[2022-10-21 02:30] VITALS: BP 160/71; PULSE 91; RESP 18; TEMP 37.6; O2SAT 95
[2022-10-21 03:00] VITALS: BP 160/71; PULSE 91; RESP 18; TEMP 37.6; O2SAT 95
[2022-10-21 04:59] LABS: Absolute Lymphocyte Count 0.52 X10^3/uL (0.83-4.51); Absolute Neutrophil Count 3.8 X10^3/uL (2.0-7.7); Basophil# 0.01 X10^3/uL; Basophil% 0.2 % (0-1); Eosinophil# 0.01 X10^3/uL; Eosinophils% 0.2 % (0-5); Hemoglobin 12.6 g/dL (13.0-16.5); Lymphocyte # 0.52 X10^3/ul (0.83-4.51); Lymphocyte % 9.8 % (19-41); Mean Corp Hgb Conc 33.2 g/dL (32-36); Mean Corpuscular Hgb 29.4 pg (27.0-32.0); Mean Corpuscular Volume 88.8 fL (80-94); Mean Platelet Vol. 10.3 fl (6.2-12.0); Monocyte# 0.96 X10^3/uL; NRBC Flagged by Analyzer 0 % (0-5); Neutrophil # 3.82 X10^3/uL (2.7-7.7); Neutrophil % 71.6 % (47-70); POSITIVE DIFFERENTIAL YES; Platelet Count 214 K/mm3 (150-450); RBC Distribution Width CV 13.9 % (11.6-14.6); RBC Distribution Width SD 45.1 fl (35.1-43.9); Red Blood Count 4.28 M/mm3 (4.6-6.2); White Blood Count 5.3 K/mm3 (4.4-11.0)
[2022-10-21 05:11] LABS: Differential Indicated SCAN CRITERIA MET
[2022-10-21 05:23] LABS: Differential Comment SCANNED
[2022-10-21 05:25] LABS: Anion Gap 8 (5-15); BUN 6 mg/dL (7-18); BUN/Creat Ratio 7.6 RATIO (10-20); Chloride 110 mmol/L (98-107); Creatinine, Serum 0.79 mg/dL (0.70-1.30); EST Glomerular Filtration Rate 103 mL/min (>60); Est Glom Filt Rate - Afr Amer 125 mL/min (>60); Estimated Creatinine Clearance 63.35 ml/min; Glucose 118 mg/dL (74-106); Potassium 2.9 mmol/L (3.5-5.1); Sodium Level 141 mmol/L (136-145)
[2022-10-21 06:45] LABS: Bedside Glucose 123 mg/dL (74-106)
[2022-10-21 08:15] VITALS: BP 146/79; PULSE 84; RESP 18; TEMP 37.7; O2SAT 94
[2022-10-21] MEDS: Potassium Chloride Oral Tablet 20 MEQ 60 MEQ PO (08:25)
[2022-10-21] MEDS: 0.9% Normal Saline 1,000 ML 100 ML IV (08:26)
[2022-10-21] MEDS: Potassium Chloride Oral Tablet 20 MEQ 40 MEQ PO (09:50)
[2022-10-21] MEDS: Enoxaparin 40 MG/0.4 ML Syringe SC (09:50)
[2022-10-21] MEDS: guaiFENesin 600 MG Tablet PO ×2 (09:51→22:38)
[2022-10-21] MEDS: amLODIPine 10 MG Tablet PO (09:51)
[2022-10-21] MEDS: Lisinopril 40 MG Tablet PO (09:52)
[2022-10-21] MEDS: Topiramate 100 MG Tablet PO (09:52)
[2022-10-21] MEDS: Ceftriaxone 1 GM/50 ML BAG IV (09:56)
--- NOTE | 2022-10-21 10:40 | CASEMGMT ---
JEFFERSON LEHMAN Assessment: Face to Face with pt for initial transition planning/care coordination assessment. RN CM introduced self and role at [facility], pt voices understanding and consents to assessment. Pt appears to have some confusion. Bedside nurse in room. Pt asked the role of Complex Stockroom Supervisor several times. Complex Stockroom Supervisor introduced self and role each time. Pt later asked if Complex Stockroom Supervisor was in HR or a Doctor. Pt also appeared confused regarding DME in the home. However, pt was able to answer most questions accurately. Care providers, pharmacy, and demographics verified/updated. Admitting Dx: Flu A With AMS. PCP: Ashwin Hatfield. Specialists: None. Preferred Pharmacy: [facility]. Per [facility], [facility]. Pt answered [facility] several times even when asked where pt fills prescriptions if needed immediately. Insurance: [employer]. Prescription Benefit: Yes. LW/HPOA: Pt denies having a LW/DPOA and denies need for info regarding AD. LNOK: Giovanni Pierson Jr, son. Living Arrangements: Pt lives alone in a mobile home. The home has four steps to enter with a railing. Pt denies any issues navigating steps. Pt reports being I in ADLs. Transportation: Pt drives self and denies concerns with transportation. Son is able to transport if needed. DME/HHC/SNF: Pt has the following: cane, walker, wheelchair, shower chair, grab bars, and a lift chair. Per pt, [facility] HHC in the past. Pt reports being at [place] in the past. Pt states no concerns with going home at time of dc. Pt voiced planning to go home without HHC. Pt states no further concerns/needs. However, pt is currently listed as 2x assist. CM to follow. Advised pt to ask CM if any further question/concerns/needs arise, voices understanding. Pt Goal: Home. No needs. Plan:? TBD.
[2022-10-21] MEDS: Insulin Lispro 100 UNIT/ML INSULN.PEN SC ×2 (11:26→17:49)
[2022-10-21 11:45] LABS: Bedside Glucose 162 mg/dL (74-106)
[2022-10-21 14:59] VITALS: BP 136/79; PULSE 88; RESP 18; TEMP 36.6; O2SAT 97
--- NOTE | 2022-10-21 15:58 | PN.HOSP_ITS ---
Subjective Subjective Awake and alert, breathing better, mental status improved Objective Data Objective Data Vital Signs: Vital Signs Temp Pulse Resp BP Pulse Ox O2 Del Method 97.9 F 88 18 136/79 H 97 Room Air 10/21/22 14:59 10/21/22 14:59 10/21/22 14:59 10/21/22 14:59 10/21/22 14:59 10/21/22 15:01 Oxygen Delivery Method Room Air Weight: 103 kg Body Mass Index (BMI) 35.7 Intake & Output: Intake and Output for Last 24 Hours 10/19/22 10/20/22 10/21/22 23:59 23:59 23:59 Intake Total 1545 / 1545 1935.00 / 1935.00 Output Total 1200 / 1200 Balance 1545 / 1545 735.00 / 735.00 Lab / Micro Data Result Diagrams: 10/21/22 04:41 10/21/22 04:41 Labs: Laboratory Results - last 24 hr 10/20/22 15:19: WBC 8.5, RBC 4.46 L, Hgb 12.9 L, Hct 39.3 L, MCV 88.1, MCH 28.9, MCHC 32.8, RDW Std Deviation 44.6 H, RDW Coeff of Gabriel 13.8, Plt Count 257, MPV 10.4, Immature Gran % (Auto) 0.400, Neut % (Auto) 83.2 H, Lymph % (Auto) 3.4 L, [place] % (Auto) 12.4 H, Eos % (Auto) 0.5, Baso % (Auto) 0.1, Absolute Neuts (auto) 7.0, Absolute Lymphs (auto) 0.29 L, Nucleated RBC % 0, Differential Comment SEE COMMENT, Platelet Estimate ADEQUATE, RBC Morphology N CHROM, Anisocytosis RARE 10/20/22 15:58: Lactic Acid 2.4 H* 10/20/22 17:10: Urine Color Yellow, Urine Clarity Clear, Urine pH 8.0, Ur Specific [place] 1.010, Urine Protein 30 H, Urine Glucose (UA) Normal, Urine Ketones Negative, Urine Occult Blood 10 H, Urine Nitrite Positive H, Urine Bilirubin Negative, Urine Urobilinogen Normal, Ur Leukocyte Esterase 100 H, Urine RBC 0-5 SEEN, Urine WBC 0-5 SEEN, Ur Squamous Epith Cells 0-5 SEEN, Urine Bacteria 0 SEEN, Urine Mucus 0 SEEN 10/20/22 20:21: Lactic Acid 1.4 10/20/22 21:42: POC Glucose 143 H 10/21/22 04:41: WBC 5.3, RBC 4.28 L, Hgb 12.6 L, Hct 38.0 L, MCV 88.8, MCH 29.4, MCHC 33.2, RDW Std Deviation 45.1 H, RDW Coeff of Gabriel 13.9, Plt Count 214, MPV 10.3, Immature Gran % (Auto) 0.200, Neut % (Auto) 71.6 H, Lymph % (Auto) 9.8 L, [place] % (Auto) 18.0 H, Eos % (Auto) 0.2, Baso % (Auto) 0.2, Absolute Neuts (auto) 3.8, Absolute Lymphs (auto) 0.52 L, Nucleated RBC % 0, Differential Comment SCANNED 10/21/22 04:41: Sodium 141, Potassium 2.9 L, Chloride 110 H, Carbon Dioxide 23.0, Anion Gap 8, BUN 6 L, Creatinine 0.79, Estim Creat Clear Calc 63.35, Est GFR (MDRD) Af Amer 125, Est GFR (MDRD) Non-Af 103, BUN/Creatinine Ratio 7.6 L, Glucose 118 H, Calcium 8.0 L 10/21/22 06:25: POC Glucose 123 H 10/21/22 11:24: POC Glucose 162 H Micro: Microbiology 10/20/22 15:19 Nasal Secretion SARS-CoV-2 & FLU Antigen (Rapid) - Final Influenzae A Radiography Diagnostic Testing: Radiology Impression Chest X-Ray 10/20/22 15:30 IMPRESSION: Patchy infiltrate left lower lung field suspicious for pneumonia. Recommend short-term follow-up for resolution. Electronically Signed: Alexis Krishna MD at 16:00 EST , Brain CT 10/20/22 15:43 IMPRESSION: Volume loss with chronic white matter changes. No acute intracranial findings. Electronically Signed: Alexis Krishna MD at 17:18 EST , Physical Exam Const alert and no apparent distress Constitutional Narrative: Oriented HEENT normocephalic and head/scalp atraumatic Eyes Eyes Narrative: EOM grossly intact, anicteric Neck supple Resp normal respiratory effort and clear to auscultation bilaterally Cardio regular rate and regular rhythm GI soft to palpation, non-tender and non-distended Extremity Extremity Narrative: No edema appreciated Neuro moves all extremities Neuro Narrative: No overt focal deficits appreciated Psych Psych Narrative: Cooperative Assessment & Plan Assessment/Plan (1) Influenza A: (2) Community acquired pneumonia: (3) Delirium: (4) Acidosis, lactic: PLAN: Plan 1. Altered mental status secondary to influenza A and possible bacterial pneumonia on the left side ? Unsure as to the duration of symptoms however Tamiflu was not all that helpful so we will hold off as he is not hypoxic ? Continue with Rocephin and azithromycin for his possible left-sided infiltrate ? We will attempt to get a sputum culture 10/21: Doing very well on current management, is influenza A positive, unclear if bacterial component but will likely treat for both given his rapid improvement. Did do much better today from mental status standpoint, likely discharge home tomorrow. PT felt he could go home with help 2. DM2 ? We will hold his home medications ? We will place him on sliding scale insulin ? Accu-Cheks AC at bedtime ? Will monitor and make adjustments as necessary 3. HTN/HLD ? Blood pressures are current, will verify his home blood pressure medications ? Once meds are verified can restart home blood pressure medications 10/21: Continue amlodipine and lisinopril DVT: Lovenox Charges/Coding Visit Charges Inpatient E&M: 44349 Subs Hosp L2
[2022-10-21] MEDS: Benzonatate 100 MG Capsule PO (17:50)
[2022-10-21 18:06] LABS: Bedside Glucose 153 mg/dL (74-106)
[2022-10-21 22:30] VITALS: BP 138/71; PULSE 97; RESP 18; TEMP 36.4; O2SAT 96
[2022-10-21] MEDS: 0.9% Saline Lock 10 ML Syringe IV (22:38)
[2022-10-21] MEDS: Atorvastatin Calcium 20 MG Tablet PO (22:38)
[2022-10-21 23:01] LABS: Bedside Glucose 135 mg/dL (74-106)
[2022-10-22 06:39] LABS: Absolute Lymphocyte Count 0.71 X10^3/uL (0.83-4.51); Eosinophil# 0.02 X10^3/uL; Eosinophils% 0.6 % (0-5); Hematocrit 39.8 % (40-54); Hemoglobin 12.5 g/dL (13.0-16.5); Lymphocyte # 0.71 X10^3/ul (0.83-4.51); Lymphocyte % 20.5 % (19-41); Mean Corp Hgb Conc 31.4 g/dL (32-36); Mean Corpuscular Hgb 28.1 pg (27.0-32.0); Mean Corpuscular Volume 89.4 fL (80-94); Mean Platelet Vol. 10.2 fl (6.2-12.0); Monocyte# 0.76 X10^3/uL; NRBC Flagged by Analyzer 0 % (0-5); Neutrophil # 1.95 X10^3/uL (2.7-7.7); Neutrophil % 56.3 % (47-70); Platelet Count 206 K/mm3 (150-450); RBC Distribution Width CV 13.7 % (11.6-14.6); RBC Distribution Width SD 45.1 fl (35.1-43.9); Red Blood Count 4.45 M/mm3 (4.6-6.2); White Blood Count 3.5 K/mm3 (4.4-11.0)
[2022-10-22 06:45] VITALS: BP 163/77; PULSE 97; RESP 18; TEMP 36.3; O2SAT 95
[2022-10-22] MEDS: Benzonatate 100 MG Capsule PO ×2 (06:53→16:01)
[2022-10-22] MEDS: Insulin Lispro 100 UNIT/ML INSULN.PEN SC ×3 (06:54→20:56)
[2022-10-22 07:03] LABS: Anion Gap 5 (5-15); BUN 9 mg/dL (7-18); BUN/Creat Ratio 12.6 RATIO (10-20); Calcium,Total 8.4 mg/dL (8.5-10.1); Chloride 109 mmol/L (98-107); Creatinine, Serum 0.72 mg/dL (0.70-1.30); EST Glomerular Filtration Rate 115 mL/min (>60); Est Glom Filt Rate - Afr Amer 139 mL/min (>60); Estimated Creatinine Clearance 63.35 ml/min; Glucose 169 mg/dL (74-106); Potassium 3.3 mmol/L (3.5-5.1); Sodium Level 139 mmol/L (136-145)
[2022-10-22 07:20] LABS: Bedside Glucose 165 mg/dL (74-106)
--- NOTE | 2022-10-22 07:47 | NURSING ---
unable to pull K+ from accudose for pt administration
[2022-10-22] MEDS: Potassium Chloride Oral Tablet 20 MEQ 40 MEQ PO (08:42)
[2022-10-22 09:00] VITALS: RESP 18; O2SAT 93
[2022-10-22 09:04] VITALS: BP 143/78; PULSE 92; RESP 18; TEMP 37.3; O2SAT 92
[2022-10-22] MEDS: Ceftriaxone 1 GM/50 ML BAG IV (09:08)
[2022-10-22] MEDS: amLODIPine 10 MG Tablet PO (09:14)
[2022-10-22] MEDS: guaiFENesin 600 MG Tablet PO ×2 (09:14→20:54)
[2022-10-22] MEDS: Topiramate 100 MG Tablet PO (09:15)
[2022-10-22] MEDS: Lisinopril 40 MG Tablet PO (09:15)
[2022-10-22] MEDS: Enoxaparin 40 MG/0.4 ML Syringe SC (09:16)
[2022-10-22 12:50] LABS: Bedside Glucose 232 mg/dL (74-106)
--- NOTE | 2022-10-22 16:04 | PN.HOSP_ITS ---
Subjective Subjective Breathing improving, somewhat overall weak but mental status improving as well. No other complaints today Objective Data Objective Data Vital Signs: Vital Signs Temp Pulse Resp BP Pulse Ox O2 Del Method 99.1 F 92 18 143/78 H 92 Room Air 10/22/22 09:04 10/22/22 09:04 10/22/22 09:04 10/22/22 09:04 10/22/22 09:04 10/22/22 09:04 Oxygen Delivery Method Room Air Weight: 103 kg Body Mass Index (BMI) 35.7 Intake & Output: Intake and Output for Last 24 Hours 10/20/22 10/21/22 10/22/22 23:59 23:59 23:59 Intake Total 1545 / 1545 2235.00 / 2235.00 1455 / 1455 Output Total 1500 / 1500 700 / 700 Balance 1545 / 1545 735.00 / 735.00 755 / 755 Lab / Micro Data Result Diagrams: 10/22/22 06:30 10/22/22 06:30 Labs: Laboratory Results - last 24 hr 10/21/22 17:47: POC Glucose 153 H 10/21/22 22:30: POC Glucose 135 H 10/22/22 06:30: WBC 3.5 L, RBC 4.45 L, Hgb 12.5 L, Hct 39.8 L, MCV 89.4, MCH 28.1, MCHC 31.4 L D, RDW Std Deviation 45.1 H, RDW Coeff of Gabriel 13.7, Plt Count 206, MPV 10.2, Immature Gran % (Auto) 0.600, Neut % (Auto) 56.3, Lymph % (Auto) 20.5, [place] % (Auto) 22.0 H, Eos % (Auto) 0.6, Baso % (Auto) 0.0, Absolute Neuts (auto) 2.0, Absolute Lymphs (auto) 0.71 L, Nucleated RBC % 0 10/22/22 06:30: Sodium 139, Potassium 3.3 L, Chloride 109 H, Carbon Dioxide 25.0 , Anion Gap 5, BUN 9, Creatinine 0.72, Estim Creat Clear Calc 63.35, Est GFR (MDRD) Af Amer 139, Est GFR (MDRD) Non-Af 115, BUN/Creatinine Ratio 12.6, Glucose 169 H, Calcium 8.4 L 12/31/22 06:44: POC Glucose 165 H 10/22/22 12:18: POC Glucose 232 H Micro: Microbiology 10/20/22 17:10 Urine, Clean Catch Urine Culture - Preliminary Culture exhibits no growth. 10/20/22 15:19 Nasal Secretion SARS-CoV-2 & FLU Antigen (Rapid) - Final Influenzae A Physical Exam Const alert and no apparent distress Constitutional Narrative: Oriented HEENT normocephalic and head/scalp atraumatic Eyes Eyes Narrative: EOM grossly intact, anicteric Neck supple Resp normal respiratory effort and clear to auscultation bilaterally Cardio regular rate and regular rhythm GI soft to palpation, non-tender and non-distended Extremity Extremity Narrative: No edema appreciated Neuro moves all extremities Neuro Narrative: No overt focal deficits appreciated Psych Psych Narrative: Cooperative Assessment & Plan Assessment/Plan (1) Influenza A: (2) Community acquired pneumonia: (3) Delirium: (4) Acidosis, lactic: PLAN: Plan 1. Altered mental status secondary to influenza A and possible bacterial pneumonia on the left side ? Unsure as to the duration of symptoms however Tamiflu was not all that helpful so we will hold off as he is not hypoxic ? Continue with Rocephin and azithromycin for his possible left-sided infiltrate ? We will attempt to get a sputum culture 10/21: Doing very well on current management, is influenza A positive, unclear if bacterial component but will likely treat for both given his rapid improvement. Did do much better today from mental status standpoint, likely discharge home tomorrow. PT felt he could go home with help 10/22: Quite weak and shaky today, lives alone, will need either help at home or placement. We will discuss again with patient and begin pursuing options 2. DM2 ? We will hold his home medications ? We will place him on sliding scale insulin ? Accu-Cheks AC at bedtime ? Will monitor and make adjustments as necessary 3. HTN/HLD ? Blood pressures are current, will verify his home blood pressure medications ? Once meds are verified can restart home blood pressure medications 10/21: Continue amlodipine and lisinopril DVT: Lovenox Charges/Coding Visit Charges Inpatient E&M: 14910 Subs Hosp L2
--- NOTE | 2022-10-22 16:35 | CASEMGMT ---
SW Note SW met with patient and introduced herself and role as [facility] Director Of Publications. SW briefly discussed discharge options including SNF placement and provided patient with local in network SNF options. Patient was receptive towards information but was unsure if he wanted to go to a SNF. SW will continue to follow to assist with discharge planning. Sydnee Bar MSW, SUDEEP
--- NOTE | 2022-10-22 19:00 | CASEMGMT ---
JEFFERSON LEHMAN NOTE: PT/OT notes reviewed from today and they state pt okay to d/c home and HHC recommended. JEFFERSON LEHMAN to room. Pt states he is not sure if he wants HHC or not, stating, I'll have to think about it. Pt made aware, if he does discharge over the weekend to home, that HHC is unable to be set up over the W/E, and he would need to f/u with PCP. Pt provided w/list of local HHC agencies. Shakir BUTLER RN CM
[2022-10-22] MEDS: Atorvastatin Calcium 20 MG Tablet PO (20:54)
[2022-10-22 21:11] VITALS: BP 146/78; PULSE 84; RESP 18; TEMP 36.7; O2SAT 94
[2022-10-22 21:26] LABS: Bedside Glucose 210 mg/dL (74-106)
[2022-10-23] MEDS: Benzonatate 100 MG Capsule PO (03:08)
[2022-10-23 03:09] VITALS: BP 136/80; PULSE 78; RESP 18; TEMP 36.8; O2SAT 95
[2022-10-23 06:55] LABS: Bedside Glucose 148 mg/dL (74-106)
[2022-10-23 07:34] LABS: Anion Gap 8 (5-15); BUN 13 mg/dL (7-18); BUN/Creat Ratio 16.9 RATIO (10-20); Calcium,Total 8.3 mg/dL (8.5-10.1); Chloride 106 mmol/L (98-107); Creatinine, Serum 0.77 mg/dL (0.70-1.30); EST Glomerular Filtration Rate 106 mL/min (>60); Est Glom Filt Rate - Afr Amer 128 mL/min (>60); Estimated Creatinine Clearance 63.35 ml/min; Glucose 167 mg/dL (74-106); Potassium 3.2 mmol/L (3.5-5.1); Sodium Level 137 mmol/L (136-145)
[2022-10-23 07:36] LABS: Absolute Lymphocyte Count 0.88 X10^3/uL (0.83-4.51); Absolute Neutrophil Count 1.5 X10^3/uL (2.0-7.7); Basophil# 0.01 X10^3/uL; Basophil% 0.3 % (0-1); Eosinophil# 0.14 X10^3/uL; Eosinophils% 4.7 % (0-5); Hematocrit 37.9 % (40-54); Hemoglobin 12.5 g/dL (13.0-16.5); Lymphocyte # 0.88 X10^3/ul (0.83-4.51); Lymphocyte % 29.8 % (19-41); Mean Corpuscular Hgb 28.9 pg (27.0-32.0); Mean Corpuscular Volume 87.7 fL (80-94); Mean Platelet Vol. 10.6 fl (6.2-12.0); Monocyte# 0.43 X10^3/uL; Monocyte% 14.6 % (0-10); NRBC Flagged by Analyzer 0 % (0-5); Neutrophil # 1.48 X10^3/uL (2.7-7.7); Neutrophil % 50.3 % (47-70); Platelet Count 225 K/mm3 (150-450); RBC Distribution Width CV 13.5 % (11.6-14.6); RBC Distribution Width SD 43.5 fl (35.1-43.9); Red Blood Count 4.32 M/mm3 (4.6-6.2)
[2022-10-23 07:51] VITALS: BP 148/72; PULSE 83; RESP 16; TEMP 36.9; O2SAT 94
[2022-10-23] MEDS: Topiramate 100 MG Tablet PO (09:11)
[2022-10-23] MEDS: guaiFENesin 600 MG Tablet PO (09:11)
[2022-10-23] MEDS: Lisinopril 40 MG Tablet PO (09:11)
[2022-10-23] MEDS: amLODIPine 10 MG Tablet PO (09:11)
[2022-10-23] MEDS: Ceftriaxone 1 GM/50 ML BAG IV (09:11)
[2022-10-23] MEDS: Enoxaparin 40 MG/0.4 ML Syringe SC (09:11)
--- NOTE | 2022-10-23 09:42 | PCM.DC.SUM ---
Providers Date of Admission: 10/20/22 Date of Discharge: 10/23/22 Primary Care Physician: Dr. Ashwin Hatfield MD Reason For Visit: FLU A WITH AMS Diagnosis Discharge Diagnosis (1) Influenza A: Status: Acute Code(s): J10.1 - Influenza due to other identified influenza virus with other respiratory manifestations (2) Community acquired pneumonia: Status: Acute Code(s): J18.9 - Pneumonia, unspecified organism (3) Delirium: Status: Acute Code(s): R41.0 - Disorientation, unspecified (4) Acidosis, lactic: Status: Acute Code(s): E87.20 - Acidosis, unspecified Plan 1. Altered mental status secondary to influenza A and possible bacterial pneumonia on the left side 2. DM2 3. HTN/HLD Medications at Discharge Home Medications lisinopril 40 mg tablet 40 mg PO DAILY bp 08/16/20 metformin 1,000 mg tablet 1,000 mg PO BID DM 08/16/20 simvastatin 40 mg tablet 40 mg PO QHS cholesterol 08/16/20 sitagliptin phosphate 100 mg tablet 100 mg PO DAILY DM 08/16/20 amlodipine 10 mg tablet 10 mg PO DAILY bp 10/20/22 topiramate 100 mg tablet 100 mg PO DAILY Check with primary doctor 10/20/22 amoxicillin 875 mg-potassium clavulanate 125 mg tablet 1 tab PO Q12H #4 tabs 10/23/22 azithromycin 500 mg tablet 500 mg PO DAILY 2 days #2 tabs 10/23/22 Hospital Course Summary of Care Provided Minutes Spent on Discharge: 32 Hospital Course: 72-year-old male presented 10/20 with altered mental status. His son had found him at his home in the same close he was in several days prior and he did not know who he was or what year he was. On arrival he was found to have flu a and concern for pneumonia and was admitted for weakness and altered mental status. He improved quickly and worked well with physical therapy. He was discharged home with family help. On the day of discharge he denied any complaints, felt good and ready to go home, spoke with son as well who is agreeable to pick him up. Instructions as followed: *Please take this with you to your next doctors appointment* ?You have been diagnosed with influenza and pneumonia.? You are placed on antibiotics for the pneumonia and have significantly improved.? He will complete a 5-day course of antibiotics so we will need 2 more days of azithromycin and Augmentin.? He will begin both tomorrow. the prescription will be sent to preferred pharmacy on file. ?You have needed minimal diabetes medications here, continue metformin but if held glimepiride at this time to avoid hypoglycemia (low blood sugar) please discuss this with your primary care physician ? Social work provided you with a list for home health services, please follow-up with your primary care physician on Monday as they will be able to order and help you coordinate this -Please call your primary care provider's office upon discharge to schedule a hospital follow up within 1 week. -For any concerning signs or symptoms please call 911 or proceed to the nearest emergency department Physical Exam Const alert and no apparent distress Constitutional Narrative: Oriented HEENT normocephalic and head/scalp atraumatic Eyes Eyes Narrative: EOM grossly intact, anicteric Neck supple Resp normal respiratory effort and clear to auscultation bilaterally Cardio regular rate and regular rhythm GI soft to palpation, non-tender and non-distended Extremity Extremity Narrative: No edema appreciated Neuro moves all extremities Neuro Narrative: No overt focal deficits appreciated Psych Psych Narrative: Cooperative Weight / BMI Weight Weight: 103 kg Body Mass Index (BMI) 35.7 ABG / Lab / Microbiology Data Result Diagrams: 10/23/22 06:03 10/23/22 06:03 Laboratory: Laboratory Results - last 24 hr 10/22/22 12:18: POC Glucose 232 H 10/22/22 20:52: POC Glucose 210 H 10/23/22 06:03: WBC 3.0 L, RBC 4.32 L, Hgb 12.5 L, Hct 37.9 L, MCV 87.7, MCH 28.9, MCHC 33.0 D, RDW Std Deviation 43.5, RDW Coeff of Gabriel 13.5, Plt Count 225, MPV 10.6, Immature Gran % (Auto) 0.300, Neut % (Auto) 50.3, Lymph % (Auto) 29.8, [place] % (Auto) 14.6 H, Eos % (Auto) 4.7, Baso % (Auto) 0.3, Absolute Neuts (auto) 1.5 L, Absolute Lymphs (auto) 0.88, Nucleated RBC % 0 10/23/22 06:03: Sodium 137, Potassium 3.2 L, Chloride 106, Carbon Dioxide 23.0, Anion Gap 8, BUN 13, Creatinine 0.77, Estim Creat Clear Calc 63.35, Est GFR (MDRD) Af Amer 128, Est GFR (MDRD) Non-Af 106, BUN/Creatinine Ratio 16.9, Glucose 167 H, Calcium 8.3 L 10/23/22 06:31: POC Glucose 148 H Microbiology: Microbiology 10/20/22 16:55 Blood Culture (Wb) - Anticubital Right Blood Culture - Preliminary No growth in 48 hours. 10/20/22 15:58 Blood Culture (Wb) - Anticubital Left Blood Culture - Preliminary No growth in 48 hours. 10/20/22 17:10 Urine, Clean Catch Urine Culture - Preliminary Culture exhibits no growth. 10/20/22 15:19 Nasal Secretion SARS-CoV-2 & FLU Antigen (Rapid) - Final Influenzae A Meaningful Use Info Meaningful Use Diagnoses (Choose all that apply): None applicable Discharge Plan Admission Admit Date/Time: 10/20/22 18:22 Primary Reason for Your Visit: Altered mental status Attending Provider: Nancy Madrid Primary Care Provider: Ashwin Hatfield Consulting Providers: Lazarus Whitley Instructions Patient Instructions: ED Influenza (Adult) Additional Instructions / Restrictions: *Please take this with you to your next doctors appointment* ?You have been diagnosed with influenza and pneumonia. You are placed on antibiotics for the pneumonia and have significantly improved. He will complete a 5-day course of antibiotics so we will need 2 more days of azithromycin and Augmentin. He will begin both tomorrow. the prescription will be sent to preferred pharmacy on file. ?You have needed minimal diabetes medications here, continue metformin but if held glimepiride at this time to avoid hypoglycemia (low blood sugar) please discuss this with your primary care physician ? Social work provided you with a list for home health services, please follow-up with your primary care physician on Monday as they will be able to order and help you coordinate this -Please call your primary care provider's office upon discharge to schedule a hospital follow up within 1 week. -For any concerning signs or symptoms please call 911 or proceed to the nearest emergency department Discharge Orders/Prescriptions Prescriptions: New azithromycin 500 mg tablet 500 mg PO DAILY 2 Days Qty: 2 0RF amoxicillin-pot clavulanate 875-125 mg tablet 1 tab PO Q12H Qty: 4 0RF Continued metformin 1,000 MG tablet 1,000 mg PO BID simvastatin 40 MG tablet 40 mg PO QHS lisinopril 40 MG tablet 40 mg PO DAILY sitagliptin phosphate 100 MG tablet 100 mg PO DAILY amlodipine 10 mg tablet 10 mg PO DAILY topiramate 100 mg tablet 100 mg PO DAILY Discontinued glimepiride 4 MG tablet 4 mg PO DAILY Referrals / Follow Up: Ashwin Hatfield MD [Primary Care Provider] - Within 1 Week Disposition Disposition (needs filled in before D/C Order can be placed): Home, Self Care Charges/Coding Visit Charges Inpatient E&M: 49556 Disch Hosp >30min
[2022-10-23] MEDS: Potassium Chloride Oral Tablet 20 MEQ 40 MEQ PO (11:20)
[2022-10-23] MEDS: Insulin Lispro 100 UNIT/ML INSULN.PEN SC (11:30)
[2022-10-23 11:50] LABS: Bedside Glucose 208 mg/dL (74-106)
--- NOTE | 2022-10-25 17:52 | CASEMGMT ---
JEFFERSON LEHMAN Follow-up: Call placed to patient in follow-up to Home Healthcare need at discharge. Pt states he is doing well since discharge and states I'm not interested in it. Pt denies any further questions or concerns. Akhil Crespo RN CM
== END 2022-10-23 14:30 | disposition home or self-care (01) | DRG 195 ==
LOC: ED 18:29 → MS3 19:53
PROVIDERS: Admitting Provider Family Medicine; Emergency Provider Emergency Medicine; PCP Family Medicine; Visit Provider Internal Medicine
DX: J10.1 Influenza due to other identified influenza virus with other respiratory manifestations (principal); E11.9 Type 2 diabetes mellitus without complications; I10 Essential (primary) hypertension; J15.9 Unspecified bacterial pneumonia; E78.5 Hyperlipidemia, unspecified; Z60.2 Problems related to living alone; Z79.84 Long term (current) use of oral hypoglycemic drugs; Z79.899 Other long term (current) drug therapy; Z86.16 Personal history of COVID-19
CPT/HCPCS: 36415; 70450; 71045; 80048; 80053; 81001; 82962; 83605; 85025; 87040; 87086; 87428; 93005; 97116; 97162; 97165; 97530; 97535; 97802; 99285; J7030; A4216